=== PATIENT | male | born 1970 | race Caucasian/White ===

== ENCOUNTER 2016-07-05 13:55 | Emergency (ER) | payer MEDICAID ==
[2016-07-05 13:59] VITALS: BMI 21.9
[2016-07-05] MEDS ORDERED: Albuterol-Ipratrop 3 mg / 0.5 (3 ml) UD INH STA ×2 (14:03→14:22)
[2016-07-05] MEDS ORDERED: Albuterol-Ipratrop 3 mg / 0.5 (3 ml) UD ONE ×2 (14:03→14:41)
[2016-07-05 14:17] VITALS: RESP 20
--- NOTE | 2016-07-05 15:20 | C.PDOC ---
History Of Present Illness 45 y/o male with PMHx of asthma presents to ED with complaint of SOB and wheezing. Patient states he ran out of all of his asthma medications in the last week. Patient reports persistent heroin abuse, with noted trackmarks to left forearm. Denies fever, chills, dizziness, rash, URI symptoms, chest pain, or other associated symptoms. Time Seen by Provider: 07/05/16 14:19 Chief Complaint (Nursing): Respiratory Distress History Per: Patient History/Exam Limitations: no limitations Onset/Duration Of Symptoms: Hrs Current Symptoms Are (Timing): Still Present Associated Symptoms: denies: Fever, Chest Pain Preciptating Factors: Ran Out Of Meds Recent travel outside of the [place]: No Past Medical History Reviewed: Historical Data, Nursing Documentation, Vital Signs Vital Signs: Last Vital Signs Temp 97.9 F 07/05/16 15:37 Pulse 76 07/05/16 15:37 Resp 20 07/05/16 15:37 BP 162/95 H 07/05/16 15:37 Pulse Ox 96 07/05/16 15:37 - Medical History PMH: Asthma Surgical History: Appendectomy - [facility] Procedures DETOXIFICATION SERVICES FOR SUBSTANCE ABUSE TREATMENT (10/24/15) Family History: States: Unknown Family Hx - Social History Hx Alcohol Use: No Hx Substance Use: Yes - Immunization History Hx Tetanus Toxoid Vaccination: No Hx Influenza Vaccination: No Hx Pneumococcal Vaccination: No Review Of Systems Except As Marked, All Systems Reviewed And Found Negative. Constitutional: Negative for: Fever, Chills Cardiovascular: Negative for: Chest Pain, Palpitations Respiratory: Positive for: Shortness of Breath, Wheezing. Negative for: Cough, Sputum Gastrointestinal: Negative for: Nausea, Vomiting Skin: Negative for: Rash Neurological: Negative for: Headache, Dizziness Physical Exam - Physical Exam Appears: Non-toxic, No Acute Distress, Other (sleepy, easily arousable) Skin: Warm, Dry, No Rash Head: Atraumatic, Normacephalic Eye(s): bilateral: Normal Inspection, PERRL, EOMI Chest: Symmetrical Cardiovascular: Rhythm Regular, No Murmur Respiratory: No Accessory Muscle Use, No Rales, No Rhonchi, Wheezing (scattered) Gastrointestinal/Abdominal: Soft, No Tenderness Back: Normal Inspection Extremity: Normal ROM, Capillary Refill (< 2 sec. ), No Swelling, Other (track gutierrez left arm, w/o abscess) Pulses: Left Radial: Normal, Right Radial: Normal Neurological/Psych: Oriented x3, Normal Speech, Normal Cognition ED Course And Treatment O2 Sat by Pulse Oximetry: 100 (RA) Pulse Ox Interpretation: Normal Progress Note: Treated with duonebs, prednisone, and Pepcid. On reassessment, patient is resting comfortably, and is in no acute distress. Patient is speaking in complete sentences and lungs are CTA. Reevaluation Time: 15:18 Reassessment Condition: Improved Critical Care Time - Critical Care Note Total Time (in mins): 90 Documented critical care: time excludes all time spent performing seperately billable procedures. Medical Decision Making Medical Decision Making: asthma exacerbation, prob partially related to allergy season Ran out of all meds, refilled Persistent heroine abuse IVDA with tract gutierrez, but no abscess formation L AC Detox offerred and refused Narcan explained and educated and prescribed. Disposition Doctor Will See Patient In The: Office Counseled Patient/Family Regarding: Studies Performed, Diagnosis - Disposition Referrals: Alcoholics Anonymous [Outside] [facility] [Outside] [facility] [Outside] Disposition: HOME/ ROUTINE Disposition Time: 15:19 Condition: GOOD Additional Instructions: Prednisone 40 mg daily for 4 more days, to complete 5 days of steroids Pepcid 20 mg @ night to prevent stomach irritation from the prednisone Duoneb inhaled treatments with TWO ampules of Duoneb every 4 hours while awake Albuterol puffer 2 puffs every 3-4 hours when not home using the nebulizer machine Always use with the Aerochamber Puffer (makes it more effective Heroine abuse: Keep a bottle of Narcan [place] in your pocket at all time Educate your friends/family how to use it and spray up your nose in case of accidental heroine overdose Always call 911 in suspected heroine overdose Seek outpatient help/detox for your heroine addiction issues. Prescriptions: Albuterol HFA [Ventolin HFA 90 mcg/actuation (8 g)] 2 puff IH Q4H PRN #1 ea PRN Reason: asthma Albuterol/Ipratropium [Duoneb 3 MG/3 Ml-0.5 MG/3 Ml 3 Ml] 6 ml IH Q4H PRN #100 neb PRN Reason: asthma Famotidine [Pepcid] 20 mg PO HS #20 tab Naloxone HCl [Narcan] 4 mg NS ONCE PRN #1 spray PRN Reason: 2 Prednisone [Deltasone] 40 mg PO DAILY #8 tablet Spacer, Inhalation [Aerochamber] 1 dev IH DAILY #1 dev Instructions: Asthma (ED), Narcotic Abuse (ED) - Clinical Impression Clinical Impression: Exacerbation of asthma, Opiate dependence - Scribe Statement The provider has reviewed the documentation as recorded by the Olimpia Wang Provider Scribe Attestation: All medical record entries made by the Curtisibheraclio were at my direction and personally dictated by me. I have reviewed the chart and agree that the record accurately reflects my personal performance of the history, physical exam, medical decision making, and the department course for this patient. I have also personally directed, reviewed, and agree with the discharge instructions and disposition.
[2016-07-05 15:38] VITALS: BP 162/95; PULSE 76; TEMP 97.9
[2016-07-05 18:18] VITALS: O2SAT 100
== END 2016-07-05 15:38 | disposition home or self-care (01) ==
LOC: C.ER 13:55
DX: J45.901 Unspecified asthma with (acute) exacerbation (principal); F11.20 Opioid dependence, uncomplicated

== ENCOUNTER 2016-07-11 18:03 | Inpatient (IN) | payer MEDICAID ==
[2016-07-11 18:03] VITALS: BMI 21.9
[2016-07-11 19:30] LABS: BASO % 0.4 % (0.0-2.0); EOS # 0.2 K/uL (0.0-0.7); HEMATOCRIT 39.9 % (35.0-51.0); LYMPH # 2.9 K/uL (1.0-4.3); LYMPH % 32.1 % (20.0-40.0); MEAN CELL VOLUME 84.9 fL (80.0-94.0); MEAN CORPUSCULAR HEMOGLOBIN 27.7 pg (27.0-31.0); MEAN CORPUSCULAR HGB CONC 32.6 g/dL (33.0-37.0); MEAN PLATELET VOLUME 7.7 fL (7.2-11.7); MONO % 10.7 % (0.0-10.0); RED CELL DISTRIBUTION WIDTH 14.1 % (11.5-14.5); WHITE BLOOD COUNT 9.2 K/uL (4.8-10.8)
[2016-07-11 19:38] LABS: CHLORIDE 97 mmol/L (98-107); SODIUM 136 mmol/L (132-148)
[2016-07-11 19:39] LABS: POTASSIUM 3.7 mmol/L (3.6-5.2)
[2016-07-11 19:41] LABS: ALB/GLOB RATIO 1.3 (1.0-2.1); ALKALINE PHOSPHATASE 82 U/L (38-126); ALT/SGPT 24 U/L (21-72); AST/SGOT 28 U/L (17-59); BILIRUBIN,TOTAL 1.4 mg/dL (0.2-1.3); BLOOD UREA NITROGEN 13 mg/dL (9-20); CALCIUM 9.2 mg/dl (8.6-10.4); CARBON DIOXIDE 26 mmol/L (22-30); GFR AFRICAN-AMERICAN > 60; GLUCOSE,RANDOM 100 mg/dL (75-110); TOTAL PROTEIN 7.8 g/dL (6.3-8.3)
[2016-07-11 19:42] LABS: ALCOHOL SERUM < 10 mg/dl (0-10)
--- NOTE | 2016-07-11 19:51 | C.PDOC ---
History Of Present Illness The patient, a 45 y/o male whose PMHx includes Asthma, presents to the ED requesting heroin detox. Patient states he has been using heroin on and off for many years. He reports using around 8-10 bags/day and states his last use was [employer]. Patient reports he underwent detox at this hospital around 1 year ago. Otherwise, he denies suicidal/homicidal ideation and has no physical complaints at this time. Time Seen by Provider: 07/11/16 19:04 Chief Complaint (Nursing): Substance Abuse History Per: Patient History/Exam Limitations: intoxication Onset/Duration Of Symptoms: Hrs Current Symptoms Are (Timing): Still Present Suicide/Self Injury Attempted (Context): None Modifying Factor(s): Other (+heroin ) Associated Symptoms: denies: Suicidal Thoughts, Suicidal Plan Involuntary Hold By: None Recent travel outside of the [place]: No Additional History Per: Patient Past Medical History Reviewed: Historical Data, Nursing Documentation, Vital Signs Vital Signs: Last Vital Signs Temp 98.3 F 07/11/16 18:20 Pulse 94 H 07/11/16 18:20 Resp 18 07/11/16 18:20 BP 164/95 H 07/11/16 18:20 Pulse Ox 98 07/11/16 19:53 - Medical History PMH: Asthma Denies: Diabetes, Hepatitis, HIV, HTN, Seizures, Sexually Transmitted Disease Surgical History: Appendectomy - [facility] Procedures DETOXIFICATION SERVICES FOR SUBSTANCE ABUSE TREATMENT (10/24/15) Family History: States: Unknown Family Hx - Social History Hx Alcohol Use: No Hx Substance Use: Yes - Immunization History Hx Tetanus Toxoid Vaccination: No Hx Influenza Vaccination: No Hx Pneumococcal Vaccination: No Review Of Systems Except As Marked, All Systems Reviewed And Found Negative. Psych: Positive for: Other (+heroin detox ). Negative for: Suicidal ideation Physical Exam - Physical Exam Appears: No Acute Distress Skin: Normal Color, Warm, Dry Head: Atraumatic, Normacephalic Eye(s): bilateral: Normal Inspection Oral Mucosa: Moist Neck: Normal ROM, Supple Chest: Symmetrical, No Deformity, No Tenderness Cardiovascular: Rhythm Regular, No Murmur Respiratory: Normal Breath Sounds, No Rales, No Rhonchi, No Wheezing Back: Normal Inspection, No Vertebral Tenderness, No Paraspinal Tenderness Extremity: Normal ROM, Capillary Refill (less than 2 seconds ) Neurological/Psych: Oriented x3, Normal Speech, Normal Cognition Gait: Steady ED Course And Treatment - Laboratory Results Result Diagrams: 07/11/16 19:21 07/11/16 19:21 Lab Interpretation: No Acute Changes O2 Sat by Pulse Oximetry: 98 (on RA) Pulse Ox Interpretation: Normal Progress Note: labs ordered and reviewed. Disposition - Disposition Disposition: HOSPITALIZED Disposition Time: 21:19 Condition: STABLE - Clinical Impression Clinical Impression: Opiate dependence - Scribe Statement The provider has reviewed the documentation as recorded by the Scribe (Keira Rivera) Provider Attestation: All medical record entries made by the Scribe were at my direction and personally dictated by me. I have reviewed the chart and agree that the record accurately reflects my personal performance of the history, physical exam, medical decision making, and the department course for this patient. I have also personally directed, reviewed, and agree with the discharge instructions and disposition.
[2016-07-11 20:07] LABS: RBC URINE 3 /hpf (0-3); URINE BACTERIA RARE (<OCC); URINE BILIRUBIN NEGATIVE (NEGATIVE); URINE BLOOD NEGATIVE (NEGATIVE); URINE CALCIUM OXALATE CRYSTALS RARE /hpf (<OCC); URINE COLOR Yellow (YELLOW); URINE GLUCOSE (UA) NORMAL (Normal); URINE KETONE NEGATIVE (NEGATIVE); URINE LEUKOCYTE ESTERASE NEG Leu/uL (Negative); URINE PROTEIN 1+ mg/dL (NEGATIVE); WBC URINE 4 /hpf (0-5)
[2016-07-11] MEDS ORDERED: Benzocaine/Menthol (Cepacol) Lozenge PO PRN (21:42)
--- NOTE | 2016-07-12 11:41 | PCM.PSYCH ---
Initial Psychiatric Evaluation - Initial Psychiatric Evaluation Type of Admission: Voluntary Legal Status: Capacity Chief Complaint (in patient's own words): "I am here because of heroin." History of Present Illness and Precipitating Events: The pt is seen, chart reviewed, case discussed. Patient is a 45 year old male. He is with 3 children ages 24, 23, 19, lives with his at [address] [place] [address]. Patient is currently unemployed, collecting unemployment, past employment included maintenance. Denies any legal issues. Patient reports that he has been using heroin since he was 16 yo, last used yesterday, and averages 8-10 bags intravenously. Patient reports he also uses marijuana sometimes, first began at 16 yo, last used 1-2 weeks ago, and smokes marijuana a few times a week. Admits to using pain killers whenever they are available and to trying cocaine but does not remember the last time he used either. Denies LSD, PCP, alcohol use. Patient reports he has never overdosed. He smokes half a pack of cigarettes daily and refuses a nicotine patch. Patient does not remember the last time he was able to stay sober. Of note, patient went to detox at [facility] one year ago for 4-5 days for heroin, and does not remember why he relapsed. Patient also went to [place] for detox years ago and stayed there for 7 days. Attended detox at [facility] many years ago. He also went to rehab years ago in both [facility] and [facility], and [facility]. Patient currently is experiencing body aches, sweating, weakness and denies nausea, vomiting, shaking, fever, and chills at this time. Feels emotional, guilty, anxious, agitated, and is worried about his . Denies suicidal and homicidal ideation, auditory and visual hallucinations, paranoid thoughts. Has good sleep and appetite. Plans when discharge include out patient treatment. PMH: HTN, asthma Medication: albuterol Allergies: NKDA Psych Hx: Denies Psych Hospitalization Hx: Denies Family Psych Hx: Denies Family Drug Abuse Hx: Father is an alcoholic. 34 min Current Medications: Active Medications Generic Name Dose Route Start Last Admin Trade Name Freq PRN Reason Stop Dose Admin Acetaminophen 650 mg 07/11/16 21:42 Tylenol 325mg Tab PO Q4H PRN Fever greater than 101 F Benzocaine/Menthol 1 steph 05/10/17 21:42 Cepacol Sore Throat PO QID PRN Sore Throat Clonidine HCl 0.1 mg 07/11/16 21:42 07/12/16 06:27 Catapres PO 0.1 mg Q8 PRN Administration COWS Score More or Equal to 5 Hydroxyzine HCl 25 mg 07/11/16 21:44 Atarax PO Q6 PRN Agitation Loperamide HCl 2 mg 07/11/16 21:42 Imodium PO Q8 PRN Diarrhea Nicotine 1 patch 07/12/16 10:00 07/12/16 10:30 Nicoderm Cq TD Not Given DAILY GUNNAR Ondansetron HCl 4 mg 07/11/16 21:42 Zofran Tab PO Q8 PRN Nausea/Vomiting Pneumococcal Polyvalent Vaccine 0.5 ml 07/14/16 10:00 Pneumovax 23 Vaccine IM 07/14/16 10:01 .ONCE ONE Trazodone HCl 100 mg 07/12/16 22:00 Desyrel PO HS [facility] Past Psychiatric History - Past Psychiatric History Pertinent Medical Hx (Current Medical&Sleep Prob, Allergies): Allergies Allergy/AdvReac Type Severity Reaction Status Date / Time No Known Allergies Allergy Verified 07/05/16 13:59 Albuterol HFA 2 puff INH Q6 PRN 10/24/15 Albuterol HFA [Ventolin HFA 90 mcg/actuation (8 g)] 2 puff IH Q4H PRN #1 ea 06/18 Albuterol/Ipratropium [Duoneb 3 MG/3 Ml-0.5 MG/3 Ml 3 Ml] 6 ml IH Q4H PRN #100 neb 07/05/16 Famotidine [Pepcid] 20 mg PO HS #20 tab 07/05/16 Naloxone HCl [Narcan] 4 mg NS ONCE PRN #1 spray 07/05/16 Prednisone [Deltasone] 40 mg PO DAILY #8 tablet 07/05/16 Spacer, Inhalation [Aerochamber] 1 dev IH DAILY #1 dev 07/05/16 Review of Systems - Neurological Neurological: Weakness - Psychiatric Psychiatric: Abnormal Sleep Pattern, Anxiety, Change in Appetite. absent: Auditory Hallucinations, Hallucinations, Homicidal Ideation, Irritability, Paranoia, Suicidal Ideation, Visual Hallucinations Mental Status Examination - Personal Presentation Personal Presentation: Looks stated age - Affect Affect: Constricted - Motor Activity Motor Activity: Calm - Reliability in Providing Information Reliability in Providing Information: Good - Speech Speech: Organized - Mood Mood: Depressed, Anxious - Formal Thought Process Formal Thought Process: No Impairment - Cognitive Functions Orientation: Person, Place, Situation, Time Sensorium: Alert Attention/Concentration: Attentive Estimate of Intelligence: Average Judgement: Intact, as evidence by: Insight regarding need for hospitalization Memory: Recent intact, as evidence by: Ability to recall events of the day, Remote intact, as evidenced by: Abilit to recall sig. life events - Risk Risk: Withdrawal, Diminished functioning - Strength & Assets Inventory Strength & Assets Inventory: Cooperative - Limitations Limitations: Living alone DSM 5 DX - DSM 5 DSM 5 Diagnosis: Opioid withdrawal Opioid use d/o - severe Tobacco use d/o -severe - Recommended/Plan of Treatment Treatment Recommendations and Plan of Treatment: Opioids: - Suboxone - Support and psychoeducation - As needed medications and vitamins - Attend groups and activities - Supportive therapy, individual therapy - RI and CBT for abstinence Marijuana - RI - Support and psychoeducation - Attend groups Cocaine - RI - Support and psychoeducation - Attend groups Tobacco Use Disorder - RI - Support and psychoeducation - Attend groups Projected ELOS: 4 days Prognosis: Good with treatment Discharge Plan and Discharge Criteria: No wdw sxs Refer to IOP and MAT - Smoking Cessation Smoking Cessation Initiated: Yes
[2016-07-12] MEDS ORDERED: Buprenorphine Hydrochloride 2 mg SL ONE ×2 (14:15→15:00)
[2016-07-12] MEDS ORDERED: Buprenorphine Hydrochloride 2 mg SL SCH (15:19)
[2016-07-12] MEDS ORDERED: Albuterol HFA 90 mcg/actuation (8 g) INH PRN (15:33)
--- NOTE | 2016-07-13 00:44 | CP.PCM.CON ---
<Nic Edge - Last Filed: 07/13/16 00:56> History of Present Illness - History of Present Illness History of Present Illness: PGY-1 Medicine Consult Note CC: HTN, Tachycardia 45 year old male with PMH HTN, asthma presented to [facility] for Heroin detox. While in detox, patient became hypertensive and tachycardic. As per nurse, he was walking into other patients rooms. Nurse also stated that he has been experiencing auditory and visual hallucinations. He was given Ativan and Haldol which seemed to help. Patient stated that he feels alright besides for anxiety. He is currently denying any pain. Patient has been using Heroin and marijuana since age 16. Denies LSD, PCP, opiate, cocaine, synthetic marijuana/spice, and alcohol use. Patient reports he has never overdosed. Patient does not remember the last time he was able to stay sober. Patient denies any alleviating or exacerbating factors. Admits to body aches, sweating , weakness. Denies tremors, fever/chills, nausea/vomiting, diarrhea, constipation, incontinence, numbness/tingling, urinary symptoms. PMH: HTN, asthma Medication: albuterol Allergies: NKDA PSH: Appendectomy 20 years ago Hosp: denies FH: Father is an alcoholic Social: lives with his , has 3 children, currently unemployed, collecting unemployment, past employment included maintenance, Admits to smoking half pack/ day, denies ETOH, using 8-10 bags of heroin IV daily, smokes marijuana occasionally Review of Systems - Review of Systems All systems: reviewed and no additional remarkable complaints except (as per HPI ) Past Patient History - Past Medical History & Family History Past Medical History?: Yes - Past Social History Smoking Status: Heavy Smoker > 10 Cigarettes Daily - CARDIAC Hx Hypertension: No - PULMONARY Hx Asthma: Yes - NEUROLOGICAL Hx Seizures: No - HEMATOLOGICAL/ONCOLOGICAL Hx Human Immunodeficiency Virus (HIV): No - MUSCULOSKELETAL/RHEUMATOLOGICAL Hx Falls: No - GENITOURINARY/GYNECOLOGICAL Hx Sexually Transmitted Disorders: No - PSYCHIATRIC Hx Substance Use: Yes - SURGICAL HISTORY Hx Appendectomy: Yes - ANESTHESIA Hx Anesthesia: No Meds Allergies/Adverse Reactions: Allergies Allergy/AdvReac Type Severity Reaction Status Date / Time No Known Allergies Allergy Verified 07/05/16 13:59 - Medications Medications: Current Medications Acetaminophen (Tylenol 325mg Tab) 650 mg PO Q4H PRN PRN Reason: Fever greater than 101 F Albuterol (Ventolin Hfa 90 Mcg/Actuation (8 G)) 1 puff INH RQ4 PRN PRN Reason: Shortness of Breath Last Admin: 07/12/16 15:50 Dose: 1 puff Benzocaine/Menthol (Cepacol Sore Throat) 1 steph PO QID PRN PRN Reason: Sore Throat Clonidine HCl (Catapres) 0.1 mg PO Q8 PRN PRN Reason: COWS Score More or Equal to 5 Last Admin: 07/13/16 00:05 Dose: 0.1 mg Gabapentin (Neurontin) 300 mg PO TID [facility] Last Admin: 07/12/16 16:25 Dose: 300 mg Hydroxyzine HCl (Atarax) 25 mg PO Q6 PRN PRN Reason: Agitation Last Admin: 07/12/16 15:38 Dose: 25 mg Loperamide HCl (Imodium) 2 mg PO Q8 PRN PRN Reason: Diarrhea Lorazepam (Ativan) 2 mg IVP Q6H PRN PRN Reason: Anxiety Nicotine (Nicoderm Cq) 1 patch TD DAILY [facility] Last Admin: 07/12/16 10:30 Dose: Not Given Ondansetron HCl (Zofran Tab) 4 mg PO Q8 PRN PRN Reason: Nausea/Vomiting Pneumococcal Polyvalent Vaccine (Pneumovax 23 Vaccine) 0.5 ml IM .ONCE ONE Stop: 07/14/16 10:01 Trazodone HCl (Desyrel) 100 mg PO HS [facility] Last Admin: 07/12/16 22:14 Dose: 100 mg Physical Exam - Constitutional Appears: Other (Anxious) - Head Exam Head Exam: ATRAUMATIC, NORMOCEPHALIC - Eye Exam Eye Exam: EOMI Pupil Exam: Miosis - ENT Exam ENT Exam: Mucous Membranes Moist - Neck Exam Neck exam: Positive for: Normal Inspection - Respiratory Exam Respiratory Exam: Clear to Auscultation Bilateral, NORMAL BREATHING PATTERN - Cardiovascular Exam Cardiovascular Exam: Tachycardia, REGULAR RHYTHM, +S1, +S2 - GI/Abdominal Exam GI & Abdominal Exam: Normal Bowel Sounds, Soft. absent: Tenderness - Extremities Exam Extremities exam: Positive for: normal capillary refill, pedal pulses present. Negative for: calf tenderness, pedal edema, tenderness Additional comments: track gutierrez on left upper extremity in antecubital region without erythema, edema, or warmth - Back Exam Back exam: absent: CVA tenderness (L), CVA tenderness (R) - Neurological Exam Neurological exam: Alert, CN II-XII Intact, Oriented x3 - Psychiatric Exam Psychiatric exam: Flat Affect - Skin Skin Exam: Dry, Intact, Warm Results - Vital Signs Recent Vital Signs: Last Vital Signs Temp 98.3 F 07/12/16 21:54 Pulse 95 H 07/12/16 21:54 Resp 18 07/12/16 21:54 BP 140/90 07/12/16 21:54 Pulse Ox 98 07/12/16 13:43 - Labs Result Diagrams: 07/11/16 19:21 07/11/16 19:21 Assessment & Plan - Assessment and Plan (Free Text) Plan: 1. HTN 154/100 Clonidine 0.1 PO Q8H GUNNAR BP is subjective to rebound increase due to clonidine - needs to be given around the clock Monitor BP 2. Tachycardia likely secondary to withdrawal Ativan 2 mg IVP Q6H Blood culture Urine Culture Urinanalysis UDS CBC/CMP Monitor HR 3. Opioids Withdrawal and Abuse Suboxone Support and psychoeducation Medications and vitamins as per Psych Attend groups and activities Supportive therapy, individual therapy CT and CBT for abstinence 4. Marijuana abuse CT Support and psychoeducation Attend groups 5. Cocaine abuse CT Support and psychoeducation Attend groups 5. Tobacco Use Disorder CT Support and psychoeducation Attend groups <Florentino Shelby - Last Filed: 07/13/16 06:13> Meds - Medications Medications: Current Medications Acetaminophen (Tylenol 325mg Tab) 650 mg PO Q4H PRN PRN Reason: Fever greater than 101 F Albuterol (Ventolin Hfa 90 Mcg/Actuation (8 G)) 1 puff INH RQ4 PRN PRN Reason: Shortness of Breath Last Admin: 07/12/16 15:50 Dose: 1 puff Benzocaine/Menthol (Cepacol Sore Throat) 1 steph PO QID PRN PRN Reason: Sore Throat Clonidine HCl (Catapres) 0.1 mg PO Q8 GUNNAR Gabapentin (Neurontin) 300 mg PO TID GUNNAR Last Admin: 07/12/16 16:25 Dose: 300 mg Hydroxyzine HCl (Atarax) 25 mg PO Q6 PRN PRN Reason: Agitation Last Admin: 07/12/16 15:38 Dose: 25 mg Loperamide HCl (Imodium) 2 mg PO Q8 PRN PRN Reason: Diarrhea Lorazepam (Ativan) 2 mg IVP Q6H PRN PRN Reason: Anxiety Nicotine (Nicoderm Cq) 1 patch TD DAILY GUNNAR Last Admin: 07/12/16 10:30 Dose: Not Given Ondansetron HCl (Zofran Tab) 4 mg PO Q8 PRN PRN Reason: Nausea/Vomiting Pneumococcal Polyvalent Vaccine (Pneumovax 23 Vaccine) 0.5 ml IM .ONCE ONE Stop: 07/14/16 10:01 Trazodone HCl (Desyrel) 100 mg PO HS [facility] Last Admin: 07/12/16 22:14 Dose: 100 mg Results - Vital Signs Recent Vital Signs: Last Vital Signs Temp 98.3 F 07/13/16 01:21 Pulse 100 H 07/13/16 01:21 Resp 20 07/13/16 00:00 BP 154/100 H 07/13/16 01:21 Pulse Ox 100 07/13/16 00:00 - Labs Result Diagrams: 07/13/16 01:59 07/13/16 01:59 Labs: Laboratory Results - last 24 hr 07/13/16 07/13/16 07/13/16 01:59 01:59 01:59 WBC 12.8 H RBC 5.30 Hgb 14.5 Hct 44.1 MCV 83.3 MCH 27.4 MCHC 32.8 L RDW 13.7 Plt Count 390 MPV 8.0 Neut % (Auto) 64.8 Lymph % (Auto) 24.0 [place] % (Auto) 10.6 H Eos % (Auto) 0.2 Baso % (Auto) 0.4 Neut # 8.3 H Lymph # 3.1 [place] # 1.4 H Eos # 0.0 Baso # 0.0 Sodium 135 Potassium 3.8 Chloride 100 Carbon Dioxide 25 Anion Gap 14 BUN 12 Creatinine 0.6 L Est GFR ( Amer) > 60 Est GFR (Non-Af Amer) > 60 Random Glucose 116 H Calcium 9.5 Total Bilirubin 1.6 H AST 37 ALT 22 Alkaline Phosphatase 90 Ammonia 20 Total Protein 8.1 Albumin 4.4 Globulin 3.7 Albumin/Globulin Ratio 1.2 Assessment & Plan - Date & Time Date: 07/13/16 (I have seen and examined the patient. I agree with the findings and plan of care as documented by Dr. Edge. Patient admitted to detox for polysubstance abuse - opioid and marijuana. Consulted due to tachycardia and hypertension. Continue clonidine. Ativan. Check EKG. Continue current detox regimen. Monitor for acute changes. ) Time: 06:11 Attending/Attestation - Attestation I have personally seen and examined this patient.: Yes I have fully participated in the care of the patient.: Yes I have reviewed all pertinent clinical information: Yes
[2016-07-13] MEDS ORDERED: Buprenorphine Hydrochloride 2 mg SL ONE (00:53)
[2016-07-13 02:05] LABS: BASO % 0.4 % (0.0-2.0); EOS % 0.2 % (0.0-4.0); HEMATOCRIT 44.1 % (35.0-51.0); LYMPH # 3.1 K/uL (1.0-4.3); MEAN CELL VOLUME 83.3 fL (80.0-94.0); MEAN CORPUSCULAR HEMOGLOBIN 27.4 pg (27.0-31.0); MEAN CORPUSCULAR HGB CONC 32.8 g/dL (33.0-37.0); MONO # 1.4 K/uL (0.0-0.8); MONO % 10.6 % (0.0-10.0); RED CELL DISTRIBUTION WIDTH 13.7 % (11.5-14.5); WHITE BLOOD COUNT 12.8 K/uL (4.8-10.8)
[2016-07-13 02:15] LABS: CHLORIDE 100 mmol/L (98-107); POTASSIUM 3.8 mmol/L (3.6-5.2); SODIUM 135 mmol/L (132-148)
[2016-07-13 02:18] LABS: ALB/GLOB RATIO 1.2 (1.0-2.1); ALKALINE PHOSPHATASE 90 U/L (38-126); ALT/SGPT 22 U/L (21-72); AST/SGOT 37 U/L (17-59); BILIRUBIN,TOTAL 1.6 mg/dL (0.2-1.3); BLOOD UREA NITROGEN 12 mg/dL (9-20); CALCIUM 9.5 mg/dl (8.6-10.4); CARBON DIOXIDE 25 mmol/L (22-30); GFR AFRICAN-AMERICAN > 60; GLUCOSE,RANDOM 116 mg/dL (75-110); TOTAL PROTEIN 8.1 g/dL (6.3-8.3)
[2016-07-13 07:47] VITALS: RESP 16; O2SAT 99
--- NOTE | 2016-07-13 08:59 | CP.PCM.PN ---
<TobyRaghavendra - Last Filed: 07/13/16 15:13> Subjective - Date & Time of Evaluation Date of Evaluation: 07/13/16 Time of Evaluation: 08:50 - Subjective Subjective: Medicine Note- Hospitalist Service Patient was seen and examined at bedside. Patient reports that he slept well last night. Patient denies any auditory or visual hallucinations. No nausea, vomiting, abdominal pain. He mentions that under his feet, near his toes, he thinks he may have been using too much foot powder and it may have caused the skin to crack and dry. Objective - Vital Signs/Intake and Output Vital Signs (last 24 hours): Temp Pulse Resp BP Pulse Ox 97.9 F 72 16 144/87 99 07/13/16 07:46 07/13/16 07:46 07/13/16 07:46 07/13/16 07:46 07/13/16 07:46 - Medications Medications: Current Medications Acetaminophen (Tylenol 325mg Tab) 650 mg PO Q4H PRN PRN Reason: Fever greater than 101 F Albuterol (Ventolin Hfa 90 Mcg/Actuation (8 G)) 1 puff INH RQ4 PRN PRN Reason: Shortness of Breath Last Admin: 07/12/16 15:50 Dose: 1 puff Benzocaine/Menthol (Cepacol Sore Throat) 1 steph PO QID PRN PRN Reason: Sore Throat Buprenorphine HCl (Subutex) 8 mg SL .TAPER [facility] PRN Reason: Taper Stop: 07/17/16 09:59 Clonidine HCl (Catapres) 0.1 mg PO Q8 [facility] Last Admin: 07/13/16 06:25 Dose: 0.1 mg Gabapentin (Neurontin) 300 mg PO TID [facility] Last Admin: 07/12/16 16:25 Dose: 300 mg Hydroxyzine HCl (Atarax) 25 mg PO Q6 PRN PRN Reason: Agitation Last Admin: 07/12/16 15:38 Dose: 25 mg Loperamide HCl (Imodium) 2 mg PO Q8 PRN PRN Reason: Diarrhea Lorazepam (Ativan) 2 mg IVP Q6H PRN PRN Reason: Anxiety Nicotine (Nicoderm Cq) 1 patch TD DAILY [facility] Last Admin: 07/12/16 10:30 Dose: Not Given Ondansetron HCl (Zofran Tab) 4 mg PO Q8 PRN PRN Reason: Nausea/Vomiting Pneumococcal Polyvalent Vaccine (Pneumovax 23 Vaccine) 0.5 ml IM .ONCE ONE Stop: 07/14/16 10:01 Trazodone HCl (Desyrel) 100 mg PO HS [facility] Last Admin: 07/12/16 22:14 Dose: 100 mg - Labs Labs: 07/13/16 01:59 07/13/16 01:59 - Constitutional Appears: Non-toxic, No Acute Distress - Head Exam Head Exam: ATRAUMATIC, NORMAL INSPECTION, NORMOCEPHALIC - Eye Exam Pupil Exam: NORMAL ACCOMODATION, PERRL - ENT Exam ENT Exam: Mucous Membranes Moist - Respiratory Exam Respiratory Exam: Clear to Ausculation Bilateral, NORMAL BREATHING PATTERN. absent: Prolonged Expiratory Phase, Rales, Rhonchi, Wheezes - Cardiovascular Exam Cardiovascular Exam: REGULAR RHYTHM, +S1, +S2 - GI/Abdominal Exam GI & Abdominal Exam: Soft, Normal Bowel Sounds. absent: Tenderness, Diminished Bowel Sounds, Hypoactive Bowel Sounds - Extremities Exam Extremities Exam: Normal Capillary Refill Additional comments: Ventral side of both feet , distal portion, white and dried skin - Neurological Exam Neurological Exam: Alert, Awake, Oriented x3 - Psychiatric Exam Psychiatric exam: Normal Affect, Normal Mood - Skin Skin Exam: Dry, Intact, Normal Color, Warm Assessment and Plan - Assessment and Plan (Free Text) Assessment: 1. HTN 144/87 Continue Clonidine 0.1 PO Q8H [facility] BP is subjective to rebound increase due to clonidine - needs to be given around the clock Monitor BP 2. Tachycardia likely secondary to withdrawal Ativan 2 mg IVP Q6H PRN Blood culture Urine Culture pending collection UA- +1 protein UDS CBC/CMP Monitor HR UDS positive for opioids and cannabis 3. Opioids Withdrawal and Abuse Suboxone Support and psychoeducation Medications and vitamins as per Psych Attend groups and activities Supportive therapy, individual therapy MN and CBT for abstinence 4. Marijuana abuse MN Support and psychoeducation Attend groups 5. Cocaine abuse MN Support and psychoeducation Attend groups 5. Tobacco Use Disorder MN Support and psychoeducation Attend groups 6. Asthma Continue Duoneb 1 puff INH Q4h PRN 7. Hyperbilirubinemia Total Bili- 1.6 No intervention at this time, will continue to monitor for now. 8. Onychomychosis Per House resident and housestaff, Patient left against medical advice in the afternoon, after he was evaluated. <Meredith Hu V - Last Filed: 07/22/16 22:59> Objective - Vital Signs/Intake and Output Vital Signs (last 24 hours): Temp Pulse Resp BP Pulse Ox 98.1 F 85 16 134/93 H 99 07/13/16 12:34 07/13/16 12:34 07/13/16 12:34 07/13/16 12:34 07/13/16 12:34 - Labs Labs: 07/13/16 01:59 07/13/16 01:59 Attending/Attestation - Attestation Notes (Text): Patient left against medical advice prior to my arrival.
[2016-07-13] MEDS ORDERED: Buprenorphine Hydrochloride 2 mg SL SCH (10:00)
[2016-07-13 10:59] LABS: RBC URINE 3 /hpf (0-3); URINE BILIRUBIN NEGATIVE (NEGATIVE); URINE BLOOD NEGATIVE (NEGATIVE); URINE COLOR Yellow (YELLOW); URINE GLUCOSE (UA) NORMAL (Normal); URINE KETONE NEGATIVE (NEGATIVE); URINE LEUKOCYTE ESTERASE NEG Leu/uL (Negative); URINE PROTEIN 1+ mg/dL (NEGATIVE); URINE UROBILINOGEN NORMAL mg/dL (0.2-1.0); WBC URINE 1 /hpf (0-5)
[2016-07-13 12:36] VITALS: BP 134/93; PULSE 85; TEMP 98.1
--- NOTE | 2016-07-13 14:31 | PCM.PYCHPN ---
Psychiatric Progress Note - Psychiatric Progress Note Patient seen today, length of contact: 16 min Patient Chief Complaint: "I feel weak." Problems Identified/Issues Discussed: The pt is seen, chart reviewed, case discussed with staff. Patient states that he feels weak but is feeling better than he did yesterday. Last night the patient experienced opiate withdrawal delirium. Patient is currently A&Ox3 and reports that detox is going well now. Reports vomiting as his only withdrawal symptom and medication side effect. Patient feels anxious, tired, and denies feeling agitated. Denies suicidal and homicidal ideation, auditory and visual hallucinations, feeling like people are following him, out to get him, reading his mind and thoughts. Plans for after detox include attending an out patient treatment. Medical Problems: HTN, asthma Medication Change: Yes (Additional Subutex) Medical Record Reviewed: Yes Mental Status Examination - Cognitive Function Orientation: Person, Place, Situation, Time Memory: Intact Attention: Poor Concentration: Poor - Mood Mood: Anxious - Affect Affect: Constricted - Speech Speech: Soft - Formal Thought Process Formal Thought Process: No Impairment - Suicidal Ideation Suicidal Ideation: No - Homicidal Ideation Homicidal Ideation: No Goal/Treatment Plan - Goal/Treatment Plan Need for Continued Stay: Discharge may exacerbated symptoms, Severe functional impairment Progress Toward Problem(s) and Goals/Treatment Plan: Opioids: - Subutex - Support and psychoeducation - As needed medications and vitamins - Attend groups and activities - Supportive therapy, individual therapy - MN and CBT for abstinence Marijuana - MN - Support and psychoeducation - Attend groups Cocaine - MN - Support and psychoeducation - Attend groups Tobacco Use Disorder - MN - Support and psychoeducation - Attend groups
--- NOTE | 2016-07-14 00:07 | PCM.PYCHDC ---
Mental Status Examination - Mental Status Examination Orientation: Person, Place, Situation, Time Memory: Impaired Mood: Anxious Affect: Constricted Speech: Appropriate Attention: WNL Concentration: Poor Association: WNL Fund of Knowledge: Poor Formal Thought Process: No Impairment Suicidal Ideation: No Current Homicidal Ideation?: No Discharge Summary - Discharge Note Reason for Hospitalization: Opioid withdrawal Laboratory Data: Abnormal Lab Results 07/13/16 07/13/16 07/13/16 01:59 01:59 01:59 WBC 12.8 H RBC 5.30 Hgb 14.5 Hct 44.1 MCV 83.3 MCH 27.4 MCHC 32.8 L RDW 13.7 Plt Count 390 MPV 8.0 Neut % (Auto) 64.8 Lymph % (Auto) 24.0 [place] % (Auto) 10.6 H Eos % (Auto) 0.2 Baso % (Auto) 0.4 Neut # 8.3 H Lymph # 3.1 [place] # 1.4 H Eos # 0.0 Baso # 0.0 Sodium 135 Potassium 3.8 Chloride 100 Carbon Dioxide 25 Anion Gap 14 BUN 12 Creatinine 0.6 L Est GFR ( Amer) > 60 Est GFR (Non-Af Amer) > 60 Random Glucose 116 H Calcium 9.5 Total Bilirubin 1.6 H AST 37 ALT 22 Alkaline Phosphatase 90 Ammonia 20 Total Protein 8.1 Albumin 4.4 Globulin 3.7 Albumin/Globulin Ratio 1.2 Urine Color Urine Clarity Urine pH Ur Specific [place] Urine Protein Urine Glucose (UA) Urine Ketones Urine Blood Urine Nitrate Urine Bilirubin Urine Urobilinogen Ur Leukocyte Esterase Urine WBC (Auto) Urine RBC (Auto) Ur Squamous Epith Cells Urine Opiates Screen Urine Methadone Screen Ur Barbiturates Screen Ur Phencyclidine Scrn Ur Amphetamines Screen U Benzodiazepines Scrn U Oth Cocaine Metabols U Cannabinoids Screen 07/13/16 07/13/16 10:45 10:45 WBC RBC Hgb Hct MCV MCH MCHC RDW Plt Count MPV Neut % (Auto) Lymph % (Auto) [place] % (Auto) Eos % (Auto) Baso % (Auto) Neut # Lymph # [place] # Eos # Baso # Sodium Potassium Chloride Carbon Dioxide Anion Gap BUN Creatinine Est GFR ( Amer) Est GFR (Non-Af Amer) Random Glucose Calcium Total Bilirubin AST ALT Alkaline Phosphatase Ammonia Total Protein Albumin Globulin Albumin/Globulin Ratio Urine Color Yellow Urine Clarity Clear Urine pH 5.0 Ur Specific [place] 1.028 Urine Protein 1+ H Urine Glucose (UA) Normal Urine Ketones Negative Urine Blood Negative Urine Nitrate Negative Urine Bilirubin Negative Urine Urobilinogen Normal Ur Leukocyte Esterase Neg Urine WBC (Auto) 1 Urine RBC (Auto) 3 Ur Squamous Epith Cells < 1 Urine Opiates Screen Positive Urine Methadone Screen Negative Ur Barbiturates Screen Negative Ur Phencyclidine Scrn Negative Ur Amphetamines Screen Negative U Benzodiazepines Scrn Positive U Oth Cocaine Metabols Negative U Cannabinoids Screen Positive Consultations:: List each consultation separately and include: 1. Reason for request. 2. Findings. 3. Follow-up Summary of Hospital Course include:: 1. Description of specific treatment plan utilized for patients during their course of treatmen. 2. Summarize the time- course for resolution of acute symptoms and/or regressed behaviors. 3. Describe issues identified and worked on during hospitalization. 4. Describe medication utilized. 5. Describe medical problems identified and treated. 6. Reassessment of suicide risk Summary of Hospital Course: The pt is seen, chart reviewed, case discussed. On admission: Patient is a 45 year old male. He is with 3 children ages 24, 23, 19, lives with his at [address] [place] [address]. Patient is currently unemployed, collecting unemployment, past employment included maintenance. Denies any legal issues. Patient reports that he has been using heroin since he was 16 yo, last used yesterday, and averages 8-10 bags intravenously. Patient reports he also uses marijuana sometimes, first began at 16 yo, last used 1-2 weeks ago, and smokes marijuana a few times a week. Admits to using pain killers whenever they are available and to trying cocaine but does not remember the last time he used either. Denies LSD, PCP, alcohol use. Patient reports he has never overdosed. He smokes half a pack of cigarettes daily and refuses a nicotine patch. Patient does not remember the last time he was able to stay sober. Of note, patient went to detox at [facility] one year ago for 4-5 days for heroin, and does not remember why he relapsed. Patient also went to [place] for detox years ago and stayed there for 7 days. Attended detox at [facility] many years ago. He also went to rehab years ago in [facility], and [facility]. Patient currently is experiencing body aches, sweating, weakness and denies nausea, vomiting, shaking, fever, and chills at this time. Feels emotional, guilty, anxious, agitated, and is worried about his . Denies suicidal and homicidal ideation, auditory and visual hallucinations, paranoid thoughts. Has good sleep and appetite. Plans when discharge include out patient treatment. Hospital course: The pt was admitted and he was normal and not in big withdrawal. Next day he did get into wdw and subutex started (COWS was high). Two hours later he bagan getting very restless and it escalated without an interruption, despite several meds, and at night he was in withdrawal delirium. Med consult is contacted, blood drawn (no findings) and he got better with an additional 2 mg subutex. In am, today, he was oriented x3, not as anxious and almost back to baseline. He is interviewed and he denied using benzos or alcohol, or other drugs. However he claimed his heroin is likely mostly fentanyl and he gets severe wdw However, in the afternoon he began demanding d/c. He claimed "something happened at home and I gotta go. I have my 6-year old granddaughter who courts gave to me." He is informed that DYFS would be called (he got upset but not agitated) Risks of AMA discussed, incl. relapse, OD and , but he insisted and left - Final Diagnosis (DSM 5) Condition upon Discharge: IMPROVED DSM 5: Opioid withdrawal opioid use d/o severe Disposition: AGAINST MEDICAL ADVICE Follow-up Treatment Plan: Return to ER if suicidal or homicidal Consider getting on MAT as soon as possible - Smoking Cessation Smoking Cessation Medication prescribed: No
[2016-07-14] MEDS ORDERED: Pneumococcal 23-Valent Vaccine IM ONE (10:00)
--- NOTE | 2016-07-14 19:07 | CARD ---
APPROVED REPORT EKG Measurement Heart [id number] <Conclusion> Normal sinus rhythm with sinus arrhythmia Minimal voltage criteria for LVH, may be normal variant Borderline ECG
== END 2016-07-13 14:10 | disposition left against medical advice (07) | DRG 743 ==
LOC: C.ER 18:03 → C.7D 21:19
PROVIDERS: ADMIT Psychiatry & Neurology Psychiatry; ATTEND Psychiatry & Neurology Psychiatry
DX: F11.23 Opioid dependence with withdrawal (principal); R17 Unspecified jaundice; F17.210 Nicotine dependence, cigarettes, uncomplicated; F14.10 Cocaine abuse, uncomplicated; B35.1 Tinea unguium; F12.10 Cannabis abuse, uncomplicated; R41.0 Disorientation, unspecified; I10 Essential (primary) hypertension; J45.909 Unspecified asthma, uncomplicated; Z81.1 Family history of alcohol abuse and dependence; Z56.0 Unemployment, unspecified

== ENCOUNTER 2016-09-27 06:49 | Emergency (ER) | payer SELFPAY ==
[2016-09-27 06:49] VITALS: BMI 21.9
[2016-09-27 07:00] VITALS: BP 135/90; PULSE 88; RESP 16; TEMP 98.2; O2SAT 100
--- NOTE | 2016-09-27 07:53 | C.PDOC ---
History Of Present Illness 46-year-old male, presents to the emergency department, requesting detox from Heroin. Patient denies any physical complaints at this time. Time Seen by Provider: 09/27/16 07:01 Chief Complaint (Nursing): Psychiatric Evaluation Past Medical History Reviewed: Historical Data, Nursing Documentation, Vital Signs Vital Signs: Last Vital Signs Temp 98.2 F 09/27/16 06:55 Pulse 88 09/27/16 06:55 Resp 16 09/27/16 06:55 BP 135/90 09/27/16 06:55 Pulse Ox 100 09/27/16 07:56 - Medical History PMH: Asthma Surgical History: Appendectomy - [facility] [employer] Procedures DETOXIFICATION SERVICES FOR SUBSTANCE ABUSE TREATMENT (10/24/15) Family History: States: No Known Family Hx - Social History Hx Alcohol Use: No Hx Substance Use: Yes - Immunization History Hx Tetanus Toxoid Vaccination: No Hx Influenza Vaccination: No Hx Pneumococcal Vaccination: No Review Of Systems Constitutional: Negative for: Fever Cardiovascular: Negative for: Chest Pain Respiratory: Negative for: Shortness of Breath Psych: Negative for: Suicidal ideation Physical Exam - Physical Exam Appears: Non-toxic, No Acute Distress, Other (calm and cooperative) Skin: Warm, Dry, No Rash Eye(s): bilateral: Normal Inspection Nose: Normal Oral Mucosa: Moist Lips: Normal Appearing Neck: Normal ROM Respiratory: No Accessory Muscle Use Extremity: Normal ROM Neurological/Psych: Oriented x3, Normal Speech ED Course And Treatment O2 Sat by Pulse Oximetry: 100 Disposition - Disposition Disposition: HOME/ ROUTINE Disposition Time: 08:00 Condition: STABLE Additional Instructions: please call ahead for detox bed. return to er with worsening symptoms or concerns Instructions: Polysubstance Abuse (ED) Forms: Narvalous (Cook Islander) - Clinical Impression Clinical Impression: Substance abuse - Scribe Statement The provider has reviewed the documentation as recorded by the Scribe (Avinash Knox) All medical record entries made by the Scribe were at my direction and personally dictated by me. I have reviewed the chart and agree that the record accurately reflects my personal performance of the history, physical exam, medical decision making, and the department course for this patient. I have also personally directed, reviewed, and agree with the discharge instructions and disposition.
== END 2016-09-27 08:08 | disposition home or self-care (01) ==
LOC: C.ER 06:49
DX: F11.10 Opioid abuse, uncomplicated (principal)

== ENCOUNTER 2016-11-16 16:50 | Inpatient (IN) | payer MEDICAID, OTHER ==
[2016-11-16 16:50] VITALS: BMI 21.9
--- NOTE | 2016-11-16 17:24 | C.PDOC ---
History Of Present Illness PRESCREEN FOR DETOX. 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 Time Seen by Provider: 11/16/16 17:09 History Per: Patient History/Exam Limitations: no limitations Onset/Duration Of Symptoms: Days Suicide/Self Injury Attempted (Context): None Past Medical History Reviewed: Historical Data, Nursing Documentation, Vital Signs Vital Signs: Last Vital Signs Temp 98.8 F 11/17/16 20:39 Pulse 81 11/17/16 20:39 Resp 18 11/17/16 20:39 BP 145/85 11/17/16 20:39 Pulse Ox 99 11/17/16 20:39 - Medical History PMH: Asthma Surgical History: Appendectomy - [facility] Procedures DETOXIFICATION SERVICES FOR SUBSTANCE ABUSE TREATMENT (10/24/15) Family History: States: No Known Family Hx - Social History Hx Alcohol Use: No Hx Substance Use: Yes - Immunization History Hx Tetanus Toxoid Vaccination: No Hx Influenza Vaccination: No Hx Pneumococcal Vaccination: No Review Of Systems Except As Marked, All Systems Reviewed And Found Negative. Constitutional: Negative for: Fever Gastrointestinal: Negative for: Nausea, Vomiting, Abdominal Pain Neurological: Negative for: Weakness, Numbness Psych: Negative for: Suicidal ideation Physical Exam - Physical Exam Appears: Non-toxic, No Acute Distress Skin: Warm, Dry, No Rash Head: Atraumatic, Normacephalic Chest: Symmetrical, No Tenderness Cardiovascular: Rhythm Regular, No Murmur Respiratory: Normal Breath Sounds, No Rales, No Rhonchi, No Stridor, No Wheezing Gastrointestinal/Abdominal: Normal Exam, Soft, No Tenderness, No Guarding, No Rebound Extremity: Normal ROM, No Swelling Neurological/Psych: Oriented x3, Normal Speech, Normal Motor, Normal Sensation ED Course And Treatment - Laboratory Results Result Diagrams: 11/16/16 18:07 11/16/16 18:07 O2 Sat by Pulse Oximetry: 97 (RA) Pulse Ox Interpretation: Normal Reevaluation Time: 18:29 Reassessment Condition: Unchanged (MED CLEAR FOR DETOX) Medical Decision Making Medical Decision Making: PLAN: * Alcohol Serum * Drug Screen * CBC * CMP * Urinalysis Disposition Counseled Patient/Family Regarding: Studies Performed, Diagnosis - Disposition Disposition: HOSPITALIZED Disposition Time: 18:45 Condition: STABLE - POA Present On Arrival: None - Clinical Impression Clinical Impression: Opiate dependence - Scribe Statement The provider has reviewed the documentation as recorded by the Scribe Hilda Tiana Provider Attestation: All medical record entries made by the Olimpia were at my direction and personally dictated by me. I have reviewed the chart and agree that the record accurately reflects my personal performance of the history, physical exam, medical decision making, and the department course for this patient. I have also personally directed, reviewed, and agree with the discharge instructions and disposition. Decision To Admit - Pt Status Changed To: Hospital Disposition Of: Inpatient - Admit Certification Admit to Inpatient:: After my assessment, the patient will require hospitalization for at least two midnights. This is because of the severity of symptoms shown, intensity of services needed, and/or the medical risk in this patient being treated as an outpatient. - InPatient: Physician Admission Certification: I certify that this patient requires 2 or more midnights of care for the following reason:: SEE NOTE - . Bed Request Type: Detox Admitting Physician: Tuan Schultz Patient Diagnosis: Opiate dependence
[2016-11-16 18:11] LABS: BASO % 0.3 % (0.0-2.0); EOS # 0.2 K/uL (0.0-0.7); EOS % 2.1 % (0.0-4.0); HEMATOCRIT 38.1 % (35.0-51.0); LYMPH # 2.9 K/uL (1.0-4.3); LYMPH % 39.5 % (20.0-40.0); MEAN CORPUSCULAR HEMOGLOBIN 28.2 pg (27.0-31.0); MEAN CORPUSCULAR HGB CONC 33.6 g/dL (33.0-37.0); MEAN PLATELET VOLUME 7.4 fL (7.2-11.7); MONO # 1.1 K/uL (0.0-0.8); MONO % 14.6 % (0.0-10.0); RED CELL DISTRIBUTION WIDTH 14.5 % (11.5-14.5); WHITE BLOOD COUNT 7.2 K/uL (4.8-10.8)
[2016-11-16 18:19] LABS: CHLORIDE 104 mmol/L (98-107)
[2016-11-16 18:20] LABS: SODIUM 143 mmol/L (132-148)
[2016-11-16 18:22] LABS: ALB/GLOB RATIO 1.3 (1.0-2.1); ALKALINE PHOSPHATASE 75 U/L (38-126); ALT/SGPT 55 U/L (21-72); AST/SGOT 30 U/L (17-59); BILIRUBIN,TOTAL 0.6 mg/dL (0.2-1.3); BLOOD UREA NITROGEN 11 mg/dL (9-20); CARBON DIOXIDE 29 mmol/L (22-30); GFR AFRICAN-AMERICAN > 60; GLUCOSE,RANDOM 111 mg/dL (75-110); TOTAL PROTEIN 7.6 g/dL (6.3-8.3)
[2016-11-16 18:23] LABS: ALCOHOL SERUM < 10 mg/dl (0-10); CALCIUM 9.3 mg/dl (8.6-10.4)
[2016-11-16 18:32] LABS: RBC URINE 64 /hpf (0-3); URINE BACTERIA OCC (<OCC); URINE BILIRUBIN 1+ (NEGATIVE); URINE COLOR Amber (YELLOW); URINE GLUCOSE (UA) NORMAL (Normal); URINE KETONE TRACE mg/dL (NEGATIVE); URINE LEUKOCYTE ESTERASE NEG Leu/uL (Negative); URINE PROTEIN 2+ mg/dL (NEGATIVE); WBC URINE 4 /hpf (0-5)
[2016-11-16 18:34] LABS: URINE BLOOD 2+ (NEGATIVE)
--- NOTE | 2016-11-16 19:16 | PCM.BM ---
Treatment Plan Problems - Problems identified on initial assessmt potential for opiate withdrawal Date Initiated: 11/16/16 Time Initiated: 19:38 Assessment reference: NA Status: Active anxiety related to substance abuse Date Initiated: 11/16/16 Time Initiated: 19:39 Assessment reference: NA Status: Active Priority: 2 Treatment assets and liabiliti Patient Assests: cooperative, motivated, self-reliant, ADL independent, good support system, negotiates basic needs, cognitively intact Patient Liabilities: substance abuse, medical problems - Milieu Protocol Maintain good personal hygiene: daily Encourage regular showers, daily Remind patient to perform daily oral care, daily Assist patient to perform ADL's Conduct patient checks and document Observation sheet: Q15 minutes Maintain personal safety: every shift Educate patient to report safety concerns to staff, every shift Monitor environment for contraband/sharps Medication safety: Monitor for expected outcome, potential side effects: every shift, Assess barriers to learning: every shift, Assess readiness for medication education: every shift
[2016-11-16] MEDS ORDERED: Albuterol HFA 90 mcg/actuation (8 g) INH PRN (19:47)
[2016-11-16 22:25] VITALS: RESP 18
--- NOTE | 2016-11-17 11:22 | PCM.PSYCH ---
Initial Psychiatric Evaluation - Initial Psychiatric Evaluation Type of Admission: Voluntary Legal Status: Capacity Chief Complaint (in patient's own words): I cam here to get help.' History of Present Illness and Precipitating Events: This is a 46 yrs old HM with a history of cocaine and heroin dependence came to the ED to get help in heroin detox. Patient denies any history of any inpatient psychiatric hospitalizations and denies any follow up with any psychiatrist in the past. Pt reports history of few detoxes in the past, last was at [facility] 2 weeks ago. Pt reports that soon after the discharge from he relapsed on heroin and cocaine and started injecting 10-20 bags of heroin with $20 cocaine daily. Yesterday he injected almost 10 bags of heroin, started having withdrawal symptoms and so came to the hospital to get help. Patient reports of irritable mood, and reports withdrawal symptoms including sweating, headaches, anxiety, nausea, cramps and joint pains. Patient reports anxiety but denies any feelings of hopelessness and helplessness. He denies any suicidal ideation or homicidal ideation. Patient denies any auditory or visual hallucinations or any manic or psychotic symptoms. He denies any other substance abuse. Past medical history None reported Current Medications: Active Medications Generic Name Dose Route Start Last Admin Trade Name Freq PRN Reason Stop Dose Admin Albuterol 1 puff 11/16/16 19:47 Ventolin Hfa 90 Mcg/Actuation (8 G) INH RQ4 PRN Shortness of Breath Hydroxyzine HCl 25 mg 11/16/16 19:48 Atarax PO Q6 PRN Anxiety Trazodone HCl 50 mg 11/16/16 19:48 11/16/16 22:21 Desyrel PO 50 mg HS PRN Administration Insomnia Past Psychiatric History - Past Psychiatric History Previous Treatment History: Inpatient Pertinent Medical Hx (Current Medical&Sleep Prob, Allergies): Allergies Allergy/AdvReac Type Severity Reaction Status Date / Time No Known Allergies Allergy Verified 09/27/16 06:59 No Known Home Med 09/27/16 Review of Systems - Review of Systems All systems: reviewed and no additional remarkable complaints except - Psychiatric Psychiatric: Anxiety, Irritability Mental Status Examination - Personal Presentation Personal Presentation: Looks stated age - Affect Affect: Constricted - Motor Activity Motor Activity: Calm - Reliability in Providing Information Reliability in Providing Information: Good - Speech Speech: Organized - Mood Mood: Anxious - Formal Thought Process Formal Thought Process: No Impairment - Obsessions/Compulsions Obsessions: No Compulsions: No - Cognitive Functions Orientation: Person, Place, Situation, Time Sensorium: Alert Attention/Concentration: Attentive Abstract Thinking: [place] Estimate of Intelligence: Below average Judgement: Imparied, as evidence by: Poor judgement, Intact, as evidence by: Insight regarding need for hospitalization - Risk Risk: Withdrawal, Diminished functioning - Strength & Assets Inventory Strength & Assets Inventory: Family support DSM 5 DX - DSM 5 DSM 5 Diagnosis: Opioid use disorder severe Opioid withdrawal Cocaine use disorder severe - Recommended/Plan of Treatment Treatment Recommendations and Plan of Treatment: Opioid use disorder severe CBT Psychoeducation Supportive therapy, individual therapy Use DE for abstinence Opioid withdrawal CBT Psychoeducation Supportive therapy, individual therapy Clonidine when necessary Subutax taper Cocaine use disorder severe CBT Psychoeducation Supportive therapy, individual therapy Use DE for abstinence - Smoking Cessation Smoking Cessation Initiated: No
[2016-11-17] MEDS ORDERED: Aluminum Hydroxide/Magnesium Hydroxide Susp (30 mL) PO PRN (11:53)
[2016-11-17] MEDS ORDERED: Buprenorphine Hydrochloride 2 mg SL ONE ×2 (20:30→21:30)
[2016-11-17 20:39] VITALS: BP 145/85; PULSE 81; TEMP 98.8
--- NOTE | 2016-11-18 11:45 | PCM.PYCHDC ---
Mental Status Examination - Mental Status Examination Orientation: Person, Place, Situation, Time Memory: Intact Mood: Neutral Affect: Constricted Speech: Soft Attention: WNL Concentration: WNL Association: WNL Fund of Knowledge: WNL Formal Thought Process: No Impairment Description of patient's judgement and insight: partially impaired Psychotic Thoughts and Behaviors: denies any AVH Suicidal Ideation: No Current Homicidal Ideation?: No Discharge Summary - Discharge Note Reason for Hospitalization: This is a 46 yrs old HM with a history of cocaine and heroin dependence came to the ED to get help in heroin detox. Patient denies any history of any inpatient psychiatric hospitalizations and denies any follow up with any psychiatrist in the past. Pt reports history of few detoxes in the past, last was at [facility] 2 weeks ago. Pt reports that soon after the discharge from he relapsed on heroin and cocaine and started injecting 10-20 bags of heroin with $20 cocaine daily. Yesterday he injected almost 10 bags of heroin, started having withdrawal symptoms and so came to the hospital to get help. Patient reports of irritable mood, and reports withdrawal symptoms including sweating, headaches, anxiety, nausea, cramps and joint pains. Patient reports anxiety but denies any feelings of hopelessness and helplessness. He denies any suicidal ideation or homicidal ideation. Patient denies any auditory or visual hallucinations or any manic or psychotic symptoms. He denies any other substance abuse. Consultations:: List each consultation separately and include: 1. Reason for request. 2. Findings. 3. Follow-up Summary of Hospital Course include:: 1. Description of specific treatment plan utilized for patients during their course of treatmen. 2. Summarize the time- course for resolution of acute symptoms and/or regressed behaviors. 3. Describe issues identified and worked on during hospitalization. 4. Describe medication utilized. 5. Describe medical problems identified and treated. 6. Reassessment of suicide risk Summary of Hospital Course: During the course of his stay, patient (pt) started progressively improving and he no longer remained anxious and irritable. He started tolerating the medications however, last night he signed himself AMA. He denied any feelings of hopelessness, helplessness, and worthlessness, denied any problem with the sleep or appetite, denied suicidal ideation or homicidal ideation. Pt denied any auditory or visual hallucinations. Patient remained calm and cooperative and remained compliant with the medications. Patient tolerated the medications very well and denied any side effects. - Final Diagnosis (DSM 5) Condition upon Discharge: STABLE DSM 5: Opioid use disorder severe Opioid withdrawal Cocaine use disorder severe Disposition: AGAINST MEDICAL ADVICE Follow-up Treatment Plan: Education: Pt was educated and counseled about the risks and benefits of taking and not taking medications. Pt was educated and counseled about the risks of drinking and abusing drugs. Pt was educated and counseled to go to the ER or call 911 if pt develop suicidal ideation or homicidal ideation, worsening of symptoms or severe side effects of the meds. - Smoking Cessation Smoking Cessation Medication prescribed: No - Antipsychotic Medications Pt discharged on 2 or more routine antipsychotic medications: No
[2016-11-19 09:04] VITALS: O2SAT 97
== END 2016-11-18 02:23 | disposition left against medical advice (07) | DRG 743 ==
LOC: C.ER 16:50 → C.7D 18:45
PROVIDERS: ADMIT Psychiatry & Neurology Psychiatry; ATTEND Psychiatry & Neurology Psychiatry
PROC: HZ2ZZZZ Detoxification Services for Substance Abuse Treatment (ICD-10-PCS; principal; 2016-11-17)
PROC: HZ52ZZZ Individual Psychotherapy for Substance Abuse Treatment, Cognitive-Behavioral (ICD-10-PCS; 2016-11-17)
PROC: HZ59ZZZ Individual Psychotherapy for Substance Abuse Treatment, Supportive (ICD-10-PCS; 2016-11-17)
PROC: HZ56ZZZ Individual Psychotherapy for Substance Abuse Treatment, Psychoeducation (ICD-10-PCS; 2016-11-17)
PROC: HZ42ZZZ Group Counseling for Substance Abuse Treatment, Cognitive-Behavioral (ICD-10-PCS; 2016-11-17)
PROC: HZ46ZZZ Group Counseling for Substance Abuse Treatment, Psychoeducation (ICD-10-PCS; 2016-11-17)
DX: F11.23 Opioid dependence with withdrawal (principal); F14.20 Cocaine dependence, uncomplicated; F41.9 Anxiety disorder, unspecified